=== PATIENT | female | born 1975 | race Caucasian/White ===

== ENCOUNTER 2019-08-15 11:16 | Emergency (ER) | payer OTHER ==
[~2019-08-15] VITALS: Ht 157.5 cm; Wt 63.5 kg
[~2019-08-15 11:16] MED LIST: [UNRECOGNIZED DRUG - OTHER]
== END 2019-08-15 13:21 | disposition home or self-care (01) ==
LOC: ER 11:16
DX: D50.8 Other iron deficiency anemias (principal)

== ENCOUNTER 2019-12-14 08:41 | Outpatient (CLI) | payer OTHER | END 2019-12-14 15:00 | disposition home or self-care (01) | LOC: LAB 08:41 | DX: D50.8 Other iron deficiency anemias (principal); D68.8 Other specified coagulation defects; E83.51 Hypocalcemia; E03.8 Other specified hypothyroidism; N39.0 Urinary tract infection, site not specified; N83.209 Unspecified ovarian cyst, unspecified side ==

== ENCOUNTER 2019-12-18 12:51 | Outpatient (CLI) | payer OTHER | END 2019-12-18 13:03 | disposition home or self-care (01) | LOC: RAD 12:51 | DX: Z12.31 Encounter for screening mammogram for malignant neoplasm of breast (principal); N63.10 Unspecified lump in the right breast, unspecified quadrant; N63.20 Unspecified lump in the left breast, unspecified quadrant; N92.1 Excessive and frequent menstruation with irregular cycle; N25.9 Disorder resulting from impaired renal tubular function, unspecified; Z01.811 Encounter for preprocedural respiratory examination ==

== ENCOUNTER 2019-12-18 14:29 | Outpatient (CLI) | payer OTHER | END 2019-12-18 14:38 | disposition home or self-care (01) | LOC: EKG 14:29 | DX: Z01.810 Encounter for preprocedural cardiovascular examination (principal) ==

== ENCOUNTER 2019-12-22 07:45 | Inpatient (IN) | payer OTHER ==
[~2019-12-22] VITALS: Ht 157.5 cm; Wt 65.8 kg
[2019-12-25] MEDS ORDERED: MIDOL PO (08:33)
[2019-12-29] MEDS ORDERED: MIDOL CAPLET1 EAC1 (08:29)
== END 2020-01-01 14:30 | disposition home or self-care (01) | DRG 742 ==
LOC: OB/GYN 12-28 10:23 → O/R 12-29 07:45 → OB/GYN 12-29 07:45
PROVIDERS: ADMIT Specialist
PROC: 0UT90ZZ Resection of Uterus, Open Approach (ICD-10-PCS; principal; 2019-12-28)
PROC: 0UT70ZZ Resection of Bilateral Fallopian Tubes, Open Approach (ICD-10-PCS; 2019-12-28)
PROC: 0UB00ZZ Excision of Right Ovary, Open Approach (ICD-10-PCS; 2019-12-28)
PROC: 30233N1 Transfusion of Nonautologous Red Blood Cells into Peripheral Vein, Percutaneous Approach (ICD-10-PCS; 2019-12-28)
DX: D25.2 Subserosal leiomyoma of uterus (principal); D62 Acute posthemorrhagic anemia; N72 Inflammatory disease of cervix uteri; N92.1 Excessive and frequent menstruation with irregular cycle; N83.8 Other noninflammatory disorders of ovary, fallopian tube and broad ligament; N83.11 Corpus luteum cyst of right ovary; D50.8 Other iron deficiency anemias; I10 Essential (primary) hypertension

== ENCOUNTER 2020-05-07 10:30 | Outpatient (CLI) | payer OTHER ==
[~2020-05-07 10:30] MED LIST changes: +MIDOL CAPLET1 EAC1; +MIDOL PO
== END 2020-05-07 10:39 | disposition home or self-care (01) ==
LOC: SONOGRAMA 10:30 → MAMO-SONO 10:45
PROVIDERS: ATTEND Specialist
DX: R10.2 Pelvic and perineal pain (principal)

== ENCOUNTER 2020-05-10 09:10 | Outpatient (CLI) | payer OTHER | END 2020-05-10 09:22 | disposition home or self-care (01) | LOC: TOM 09:10 | PROVIDERS: ATTEND Specialist | DX: R10.2 Pelvic and perineal pain (principal) ==

== ENCOUNTER 2020-08-12 09:48 | Outpatient (CLI) | payer OTHER | END 2020-08-12 09:52 | disposition home or self-care (01) | LOC: RAD 09:48 | PROVIDERS: ATTEND Internal Medicine Cardiovascular Disease | DX: M12.89 Other specific arthropathies, not elsewhere classified, multiple sites (principal); M46.47 Discitis, unspecified, lumbosacral region ==

== ENCOUNTER 2021-08-13 08:39 | Outpatient (CLI) | payer OTHER | END 2021-08-13 08:50 | disposition home or self-care (01) | LOC: RAD 08:39 → RX STUDY 09:15 | PROVIDERS: ATTEND Internal Medicine Cardiovascular Disease | DX: K80.80 Other cholelithiasis without obstruction (principal); R10.84 Generalized abdominal pain ==

== ENCOUNTER 2022-02-03 10:26 | Outpatient (CLI) | payer OTHER | END 2022-02-03 10:43 | disposition home or self-care (01) | LOC: RAD 10:26 | PROVIDERS: ATTEND Chiropractor | DX: M54.10 Radiculopathy, site unspecified (principal); M54.6 Pain in thoracic spine; M54.50 Low back pain, unspecified; M62.830 Muscle spasm of back; M54.2 Cervicalgia ==

== ENCOUNTER → 2022-05-10 | Emergency (ER) | payer OTHER ==
[~2022-05-10] VITALS: Ht 160 cm; Wt 68.0 kg
== END | disposition home or self-care (01) ==
LOC: ER 17:14
DX: I47.1 Supraventricular tachycardia (principal); Z20.822 Contact with and (suspected) exposure to COVID-19; Z88.8 Allergy status to other drugs, medicaments and biological substances

== ENCOUNTER 2022-06-10 10:04 | Outpatient (CLI) | payer OTHER | END 2022-06-10 10:12 | disposition home or self-care (01) | LOC: SONOGRAMA 10:04 | PROVIDERS: ATTEND Internal Medicine Cardiovascular Disease | DX: R10.9 Unspecified abdominal pain (principal); K80.20 Calculus of gallbladder without cholecystitis without obstruction ==

== ENCOUNTER 2022-06-11 07:50 | Outpatient (CLI) | payer OTHER | END 2022-06-11 08:01 | disposition home or self-care (01) | LOC: TOM 07:50 | PROVIDERS: ATTEND Internal Medicine Cardiovascular Disease | DX: R10.9 Unspecified abdominal pain (principal); N80.9 Endometriosis, unspecified ==

== ENCOUNTER 2022-10-08 04:53 | Day surgery (SDC) | payer OTHER ==
[~2022-10-08] VITALS: Ht 157.5 cm; Wt 68.9 kg
[~2022-10-08 04:53] MED LIST changes: +NORVASC5 MG PO; +TOPROL XL25 M1 PO
== END 2022-10-08 12:25 | disposition home or self-care (01) ==
LOC: CIR.AMB 04:53
PROVIDERS: ATTEND Specialist
DX: K80.10 Calculus of gallbladder with chronic cholecystitis without obstruction (principal); Z88.8 Allergy status to other drugs, medicaments and biological substances; I10 Essential (primary) hypertension; Z86.16 Personal history of COVID-19; K21.9 Gastro-esophageal reflux disease without esophagitis; Z20.822 Contact with and (suspected) exposure to COVID-19